=== PATIENT | male | born 1995 | race Caucasian/White ===

== ENCOUNTER 2017-03-14 00:31 | Emergency (ER) | payer BC ==
[~2017-03-14] VITALS: Ht 175.3 cm; Wt 75.3 kg
[2017-03-14 00:36] VITALS: TEMP 36.9; Ht 175.3 cm; Wt 75.3 kg
[2017-03-14] MEDS ORDERED: IBUPROFEN 600 MG TAB PO STA (00:44)
[2017-03-14 01:45] VITALS: BP 137/66; PULSE 84; O2SAT 99
--- NOTE | 2017-03-14 01:46 | EMERGENCY ROOM VISIT NOTE ---
ED Visit Note First contact with patient: 00:40 CHIEF COMPLAINT: Finger injury HISTORY OF PRESENT ILLNESS: This 21-year-old patient presents to the emergency department after injuring the left middle finger playing flag football. The patient rates the pain as mild and 3/10. The patient has limited range of motion of the finger. No numbness or tingling. No lacerations. No other injuries. The patient has not had previous fracture to this finger. The patient has taken nothing for the pain. REVIEW OF SYSTEMS: A 6 system review of systems was completed with positives and pertinent negatives in the HPI. ALLERGIES: none MEDICATIONS: none PMH: none SOCIAL HISTORY: no drug use PHYSICAL EXAM: Vital Signs: Reviewed Nurse's notes, vital signs stable. GENERAL : pleasant male, in no acute distress, but appears to be in pain, well-developed , well-nourished. MUSCULOSKELETAL: There is no deformity of the left middle finger. The patient has full flexion and extension of the left middle finger and full strength to resistance is intact. The DP joint is maximally tender. There is no ligamentous instability. There is no laceration. Capillary refill less than 2 seconds. No tenderness of the remaining fingers or hand. Full range of motion of the wrist. NEURO: Alert and oriented to person, place, and time. Normal sensation to light and sharp touch. EMERGENCY DEPARTMENT COURSE: I examined the patient. An x-ray of the left middle finger was reviewed by myself and my Attending and showed avulsion fracture of the DP joint. The finger was immobiziled by metal splint under my direction and the position was satisfactory. Neurovascular status rechecked and intact. Patient is advised follow-up with orthopedics in a few days or here in the ER sooner for severe pain, numbness, tingling, worsening signs or symptoms or as needed. The patient was discharged home in good condition. Differential diagnoses include sprain, strain, fracture, tendon injury, other etiologies were considered. DIAGNOSIS: Left middle finger DP avulsion fracture DISCHARGE INSTRUCTIONS: As below Current/Historical Medications No Active Prescriptions or Reported Meds Allergies Coded Allergies: No Known Allergies (Unverified , 03/14/17) Vital Signs Date Time Temp Pulse Resp B/P (MAP) Pulse Ox O2 Delivery O2 Flow Rate FiO2 03/14/17 00:36 36.9 104 16 153/92 99 Room Air Medications Administered Medications (Trade) Dose Ordered Sig/Tiffanie Route Start Time Stop Time Status Last Admin Dose Admin Ibuprofen (Motrin Tab) 600 mg NOW STAT PO 03/14/17 00:44 03/14/17 00:47 DC 03/14/17 00:50 600 MG Departure Information Impression Primary Impression: Fracture of finger, distal phalanx, left, closed Dispostion Home / Self-Care Condition GOOD Prescriptions No Active Prescriptions or Reported Meds Referrals Cleveland Wilkinson, DO Forms WORK / SCHOOL INSTRUCTIONS, HOME CARE DOCUMENTATION FORM, Days off school: 1 School Instructions, IMPORTANT VISIT INFORMATION Patient Instructions [facility], ED Fx Finger Closed Additional Instructions Ibuprofen(Motrin, Advil) may be used for fever or pain. Use 600mg every six hours as needed. Take with food. Avoid using more than 2400mg in a 24 hour period. Do not use 2400mg per day for more than three consecutive days without physician direction. Prolonged inappropriate use can lead to stomach upset or ulcers. This medication can be taken if you need to drive, work, or perform activities which may be dangerous when taking narcotic pain medication. (AND/OR) Acetaminophen(Tylenol) may be used for fever or pain. Use 1000mg every six hours as needed. Avoid using more than 3000mg in a 24 hour period. This medication can be taken if you need to drive, work, or perform activities which may be dangerous when taking narcotic pain medication. Ice compresses for 20 minutes at a time four times daily for 2-3 days. Rest and elevate your injury. Wear finger splint. Do not have it so tight that you cannot feel your finger. Continue current medications. Return to the ER immediately for any numbness, tingling, severe pain, extreme swelling in the extremity or as needed. Call Orthopedics tomorrow to arrange follow up for your injury.
--- NOTE | 2017-03-14 07:22 | DIAGNOSTIC IMAGING REPORT ---
LEFT MIDDLE FINGER 3 VIEWS CLINICAL HISTORY: injured finger playing flag football, mid finger, DP COMPARISON STUDY: None. FINDINGS: Slightly comminuted avulsion fracture at the dorsal base of the distal phalanx of the left middle finger. This is slightly distracted. No dislocation. Distal soft tissue swelling within the left middle finger. IMPRESSION: Slightly comminuted and distracted avulsion fracture at the dorsal base of the distal phalanx of the left middle finger. Electronically signed by: Loc Brown M.D. 03/14/2017 7:21 AM Dictated Date/Time: 03/14/2017 7:20 AM
== END 2017-03-14 01:45 | disposition home or self-care (01) ==
LOC: C.EDB 00:32 → C.EDA 01:45
DX: S62.633A Displaced fracture of distal phalanx of left middle finger, initial encounter for closed fracture (principal); X58.XXXA Exposure to other specified factors, initial encounter; Y93.62 Activity, american flag or touch football; Y99.8 Other external cause status